=== PATIENT | male | born 1990 | race Caucasian/White ===

== ENCOUNTER 2019-01-24 09:28 | Emergency (ER) | payer OTHER ==
[~2019-01-24] VITALS: Ht 185.4 cm; Wt 83.9 kg
== END 2019-01-24 11:24 | disposition home or self-care (01) ==
LOC: ED 09:28
PROC: 0RSWXZZ Reposition Right Finger Phalangeal Joint, External Approach (ICD-10-PCS; principal; 2019-01-24)
DX: S63.286A Dislocation of proximal interphalangeal joint of right little finger, initial encounter (principal); S62.636D Displaced fracture of distal phalanx of right little finger, subsequent encounter for fracture with routine healing; Z87.891 Personal history of nicotine dependence; W22.8XXA Striking against or struck by other objects, initial encounter
CPT/HCPCS: 26770; 73140; 99283-25